=== PATIENT | male | born 1990 | race Caucasian/White ===

== ENCOUNTER 2021-05-06 17:31 | Emergency (ER) | payer BC, SELFPAY ==
--- NOTE | ~2021-05-06 | XR_ITS ---
EXAMINATION: XR ankle LT min 3V EXAM DATE: 05/06/2021 18:03 INDICATION: Jumping Off Truck Injury,Generalized Pain/Swelling initial encounter. TECHNIQUE: Left ankle frontal, lateral and oblique projections obtained and reviewed. There is no pr ior study for comparison. FINDINGS: The left ankle mortise appears intact. There are no acute fractures or dislocations ident ified. There is no subcutaneous gas. The soft tissue is unremarkable. There are no radiopaque for eign bodies. IMPRESSION: 1. XR ankle LT min 3V exam without acute osseous findings. Reviewed, dictated and finalized at location A. [employer]
[2021-05-06 17:44] VITALS: BP 136/80; PULSE 82; RESP 16; TEMP 37.6; O2SAT 100
--- NOTE | 2021-05-06 18:18 | PC.NURSE ---
PT DECLINED ICE AND WHEELCHAIR
--- NOTE | 2021-05-06 18:43 | ED.LOWEXIN ---
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 Patient presents with right ankle pain and swelling. MD complaint: ankle injury Injury: Right: ankle Related Data Home Medications Medication Instructions Recorded Confirmed No Home Medications 05/06/21 05/06/21 Allergies Allergy/AdvReac Type Severity Reaction Status Date / Time No Known Allergies Allergy Verified 05/06/21 17:57 Review of Systems Review of Systems: CONSTITUTIONAL: Denies fever, chills, or sweats. EYES: Denies visual changes, redness, or discharge. ENT: Denies rhinorrhea, congestion, sore throat, or otalgia. CARDIOVASCULAR: Denies chest pain, palpitations, or edema. RESPIRATORY: Denies cough or dyspnea. GASTROINTESTINAL: Denies abdominal pain, nausea, vomiting, or diarrhea. GENITOURINARY: Denies dysuria or hematuria. SKIN: Denies rash or itching. MUSCULOSKELETAL: Denies back pain, joint pain, or myalgia. NEUROLOGIC: Denies headache, numbness, or weakness. PSYCHIATRIC: Denies anxiety or depression. Exam Narrative: GENERAL: Well-appearing, well-nourished, and in no acute distress. HEAD: Normocephalic, atraumatic. EYES: PERRLA and EOMI. ENT: Nares clear, no rhinorrhea or epistaxis. Mucous membranes moist. NECK: Supple. CHEST: Clear to auscultation. No respiratory distress. HEART: Regular rate and rhythm. No murmur heard. Normal peripheral pulses. ABDOMEN: Soft, nontender, nondistended, normal active bowel sounds. EXTREMITIES: Normal range of motion. No edema. ANKLE EXAM SKIN INTACT. NORMAL DP PULSE, NORMAL CAP REFILL. NORMAL SENSATION. Swelling to lateral side of right ankle SKIN: Warm, dry, no rash. NEURO: No focal deficits. Alert and oriented x3. Shabbir Coma Scale Eye Opening: Spontaneous 4 Shabbir Coma Scale Motor: Obeys Commands 6 Buchanan Coma Scale Verbal: Oriented 5 Shabbir Coma Scale Total 15 Course Course Level of Care: Express Care Visit Vital Signs Vital signs: Vital Signs Temperature 37.6 C H 05/06/21 17:44 Pulse Rate 82 01/03/22 17:44 Respiratory Rate 16 05/06/21 17:44 Blood Pressure 136/80 05/06/21 17:44 Pulse Oximetry 100 05/06/21 17:44 Temperature 37.6 C H 05/06/21 17:44 Pulse Rate 82 05/06/21 17:44 Respiratory Rate 16 05/06/21 17:44 Blood Pressure 136/80 05/06/21 17:44 Pulse Oximetry 100 05/06/21 17:44 Addressed elevated BP today. Today's blood pressure higher than recommended range. Discussed importance of follow -up with PCP and possible detention effects/cardiovascular events related to HTN. Currently patient denies headache, dizziness, vision changes, CP or shortness of breath. DISCUSSED WITH PATIENT, X-RAY FINDINGS AND THAT X-RAYS WERE NEGATIVE FOR FRACTURE OR DISLOCATIONS. X-RAYS CANNOT RULE OUT TENDON, LIGAMENT, OR SOFT TISSUE STRUCTURE INJURIES AND IF SYMPTOMS PERSIST OR WORSEN, FURTHER EVALUATION MAY BE WARRANTED FOR POTENTIAL IMAGING. ADVISED REST, ICE, COMPRESSION, AND ELEVATION. IF PRESCRIBED ANY MEDICATIONS, TAKE DIRECTED. IF PRESCRIBED MUSCLE RELAXERS, DO NOT DRINK ALCOHOL, DRIVE, OR OPERATE ANY HEAVY MACHINERY WHILE TAKING. INSTRUCTED ON WHEN TO F/U WITH PCP AND CRITICAL RED FLAGS S/S DISCUSSED TO WHEN TO RETURN TO THE EXPRESS SOONER OR GO TO THE EMERGENCY DEPARTMENT. PATIENT/FAMILY UNDERSTAND IMPORTANCE OF CLOSE OBSERVATION AND RETURNING OR GOING TO THE EMERGENCY ROOM IF ANY WORSENING CONDITION. . MDM - Extremity Injury (Lower) Differential Diagnosis Differential diagnosis: Likely ankle sprain and strain, acute internal derangement of knee, fracture of femur, fracture of hip, puncture wound of foot, fracture of toe and ankle fracture Critical Care Time Critical Care Time Critical Care Time: No Discharge P
== END 2021-05-06 18:56 | disposition home or self-care (01) ==
PROVIDERS: Emergency Provider Nurse Practitioner Family
DX: S93.402A Sprain of unspecified ligament of left ankle, initial encounter (principal); S96.912A Strain of unspecified muscle and tendon at ankle and foot level, left foot, initial encounter; X58.XXXA Exposure to other specified factors, initial encounter
CPT/HCPCS: 73610; 99213; G0463

== ENCOUNTER 2023-02-16 09:38 | Emergency (ER) | payer BC, SELFPAY ==
--- NOTE | 2023-02-16 09:41 | ED.SOB ---
HPI - SOB/Dyspnea General Chief Complaint: Upper Respiratory Infection Stated Complaint: Shortness of Breath/Chest Congestion Time Seen by Provider: 02/16/23 09:41 Source: patient Mode of arrival: ambulatory Limitations: no limitations History of Present Illness HPI Narrative: Jayme is a 32-year-old male patient presenting to clinic today with complaints of shortness of breath and chest congestion x1 week. He reports last week he had URI symptoms and it has gone down into his chest. States he does have a history of asthma and any time he gets a cold he develops chest congestion and wheezing. Has been using his at-home nebulizers and albuterol inhaler without much relief. He denies any fever or chills. Does report bringing up some white phlegm. States he has been getting in a coughing fits and this is causing him to vomit. No known exposure to anyone with COVID, flu, or strep. Denies any chest pain. Related Data Home Medications Medication Instructions Recorded Confirmed albuterol sulfate 2.5 mg/3 mL mg 02/16/23 (0.083 %) solution for nebulization albuterol sulfate 90 mcg/actuation inhalation 02/16/23 aerosol inhaler cetirizine 10 mg tablet mg 02/16/23 Allergies Allergy/AdvReac Type Severity Reaction Status Date / Time No Known Allergies Allergy Verified 05/06/21 17:57 Review of Systems Review of Systems: Pertinent positives per HPI. Patient denies any fever, chills, rash, headache, visual changes, dizziness, chest pain, palpitations, diarrhea, constipation, abdominal pain, or any urinary issues. PMFSH Comments At the time of my signature, I reviewed and agree with the nursing past medical, surgical, social, and family history. There is no relevant family history pertinent to the patient complaint. Exam Narrative: General: Well-developed, obese, in no apparent distress Head: Normocephalic, atraumatic Eyes: Pupils equally round and reactive to light bilaterally, EOM intact, sclera and conjunctive clear, no discharge, lids normal Ears: TMs intact and congested, ear canals clear, no drainage, grossly hearing normal. Nose: Nares patent, clear nasal discharge, mild inflammation, no sinus tenderness. Mouth: Oropharynx without lesions or masses, good dentition, MMM. Neck: Supple, trachea midline, no enlargement of anterior or posterior cervical nodes, no thyroid masses or goiter palpable. Cardio: Regular rate and rhythm, s1 and s2 normal, no murmur appreciated. Resp: Expiratory wheezing throughout lung kraft, no rhonchi, rales, wheezing or rubs Course Course Emergency Course: Portions of this record may have been created with voice recognition software. Level of Care: Express Care Visit Vital Signs Vital signs: Vital signs reviewed MDM - SOB/Dyspnea MDM Narrative Medical decision making narrative: At the time of visit patient is resting comfortably on the exam table. I suspect patient has bronchitis. Prescription for Tessalon Perles, prednisone, and azithromycin. Supportive measures were discussed with the patient he voiced understanding discharge instructions. Return/follow up precautions were reviewed and he voiced understanding. Differential Diagnosis Differential diagnosis: Likely acute exacerbation of chronic obstructive airways disease, congestive heart failure, community acquired pneumonia, asthma with exacerbation, pulmonary embolism and other (COVID) Discharge Plan Discharge Clinical Impression: Bronchitis Patient Disposition: Home, Self-Care Condition: Stable Instructions: Antibiotic Form, Acute Bronchitis (ED) Additional Instructions: Take prescription medications only as prescribed-prednisone, Tessalon Perles, and azithromycin Increase fluids and stay well hydrated Tylenol/motrin for pain/fever Flonase and OTC antihistamines as directed Vicks vapor rub to open sinuses Sinus rinses for congestion Cepacol spray, cough drops, throat lozenges,
[2023-02-16 09:44] VITALS: BP 124/87; PULSE 84; RESP 20; TEMP 36.5; O2SAT 98
== END 2023-02-16 10:05 | disposition home or self-care (01) ==
PROVIDERS: Emergency Provider Nurse Practitioner Family
DX: J40 Bronchitis, not specified as acute or chronic (principal); J45.909 Unspecified asthma, uncomplicated
CPT/HCPCS: 99213; G0463

== ENCOUNTER 2024-02-29 17:37 | Emergency (ER) | payer OTHER, SELFPAY ==
[2024-02-29 18:06] VITALS: BP 113/74; PULSE 80; RESP 18; TEMP 36.7; O2SAT 98
[2024-02-29 18:16] VITALS: BP 113/74; PULSE 80; RESP 18; TEMP 36.7; O2SAT 98
--- NOTE | 2024-02-29 19:13 | ED_ITS ---
HPI - URI/Sore Throat General Chief Complaint: Upper Respiratory Infection Stated Complaint: Chest Congestion/Cough/Congestion Time Seen by Provider: 02/29/24 19:00 Source: patient, RN notes reviewed and old records reviewed Mode of arrival: ambulatory Limitations: no limitations History of Present Illness HPI Narrative: 33 year old male presents to [facility] care with complaints of head cold initially for the past 3-4 days which has gone to his chest with coughing,wheezing and expectoration of mucous. Patient reports that he has history of asthma and has been using his inhaler and has taken some DayQuil for his symptoms.Patient reports no known fevers admits to dyspnea with exertion. MD elicited complaint: cough, rhinorrhea, nasal congestion and other (BOBO and wheezing) Pertinent past history: asthma Onset (ago): day(s) (3) Consistency: progressively worsening Severity: moderate Able to tolerate fluids by mouth: Yes Treatments prior to arrival: other (DayQuil and inhaler) Related Data Home Medications Medication Instructions Recorded Confirmed albuterol sulfate 2.5 mg/3 mL mg 02/16/23 (0.083 %) solution for nebulization albuterol sulfate 90 mcg/actuation inhalation 02/16/23 aerosol inhaler Allergies Allergy/AdvReac Type Severity Reaction Status Date / Time No Known Allergies Allergy Verified 05/06/21 17:57 Review of Systems Review of Systems: CONSTITUTIONAL: Denies malaise, chills, sweats, or fever. EYES: Denies visual changes, redness, or discharge. ENT: Reports rhinorrhea, congestion, sinus pressure, no otalgia and no sore throat. CARDIOVASCULAR: Denies chest pain, palpitations, or edema. RESPIRATORY: Reports cough.?REports dyspnea and wheezing GASTROINTESTINAL: Denies abdominal pain, nausea, vomiting, diarrhea SKIN: Denies rash or itching. MUSCULOSKELETAL: Denies myalgia. NEUROLOGIC: Denies headache. All systems reviewed & are unremarkable except as noted in HPI and below PMFSH Past Medical History Medical History Asthma Social History Social History Smokeless tobacco user: chewing tobacco Alcohol intake: current Alcohol use details: social Substance use type: does not use Living arrangements: with family Gender identity (if verbalized by the patient): Male Comments At time of signature, agree with nursing past medical, surgical, social and family history. There is no relevant family history pertinent to the presenting complaint Exam Narrative: GENERAL: Well-appearing, well-nourished, and in no acute distress. HEAD: Normocephalic EYES: PERRLA, conjunctivae clear ENT: Nares clear, turbinates edematous and erythematous, clear discharge. Mucous membranes moist. TM pearly winter with dull light reflex bilaterally; no tragal tenderness. Oropharynx erythematous without lesions. Tonsils not enlarged and without exudate, no drooling, no hoarseness, no trismus, uvula midline.post nasal drainage and congestion NECK: Supple. No lymphadenopathy CHEST: Scattered wheezing through out lung kraft on auscultation, breath sounds equal.Positive for wheezing, no rhonchi, rales, or stridor. No respiratory distress, speaks in full sentences.cough noted SAO2 98% on room air HEART: Regular rate and rhythm. No murmur heard. SKIN: Warm, dry, no rash. NEURO: Alert and oriented x3. PSYCH: Normal mood and affect Course Course Emergency Course: Patient is aware of diagnosis, understands and agrees to treatment plan.? Anticipatory guidance given.? Patient agrees to follow-up as directed and is aware of reasons to seek care at the emergency department. Portions of this record may have been created with voice recognition software Level of Care: Express Care Visit Vital Signs Vital signs: Vital Signs Temperature 36.7 C 02/29/24 18:06 Pulse Rate 80 02/29/24 18:06 Respiratory Rate 18 02/29/24 18:06 Blood Pressure 113/74 02/29/24 18:06 Pulse Oximetry 98 02/29/24 18:06 Oxygen Delivery Room Air 02/29/24 18:06 Temperature 36.7 C 02/29/24 18:16 Pulse Rate 80 02/29/24 18:16 Respiratory Rate 18 02/29/24 18:16 Blood Pressure 113/74 02/29/24 18:16 Pulse Oximetry 98 02/29/24 18:16 Oxygen Delivery Room Air 02/29/24 18:16 Reviewed MDM - URI/Sore Throat MDM Narrative Medical decision making narrative: Differential diagnosis considered: Teresa virus, strep pharyngitis, allergic rhinitis, upper respiratory tract infection, sinusitis, rhinosinusitis, nasopharyngitis. viral pharyngitis, otitis media, otitis externa, pneumonia, bronchitis, viral cough syndrome, viral syndrome, and influenza.? Exam findings show no acute concerns or changes; patient is non-toxic appearing and is in no distress.? Patient is appropriate for outpatient treatment and follow-up. Differential Diagnosis Differential diagnosis: Likely upper respiratory infection, viral infection, bronchitis and other (acute cough, asthma exacerbation) Medical Records Attestation: I reviewed the patient's medical records. Lab Data Attestation: I reviewed the patient's lab results. Critical Care Time Critical Care Time Critical Care Time: No Discharge Plan Discharge Clinical Impression: Acute bronchitis Patient Disposition: Home, Self-Care Condition: Stable Instructions: Antibiotic Form, Acute Bronchitis (ED) Additional Instructions: Increase fluids especially juices and water [id number] cough and cold medicine of your choice for your symptoms Tylenol or ibuprofen for any fever pain Cough tablets as directed for cough--do not bite, chew or suck on--swallow whole Continue your inhaler/nebulizer as directed Steroids as directed--take with food heat to the face 20-30 minutes 4-6 times a day for pain Salt water gargles, throat lozenges or throat sprays as desired Antibiotic as directed--finished the medication If your symptoms persist, change or worsen significantly before you can contact your personal physician then please, without delay, go to the emergency department for further evaluation. Follow-up with PCP in 7-10 days or sooner if needed Prescriptions: New albuterol sulfate 90 mcg/actuation HFA aerosol inhaler 2 puff inhalation QID PRN (Reason: shortness of breath or wheezing) Qty: 8.5 0RF azithromycin 500 mg tablet 500 mg PO DAILY 5 Days Qty: 5 0RF prednisone 20 mg tablet 20 mg PO DAILY 5 Days Qty: 5 0RF No Action albuterol sulfate 2.5 mg /3 mL (0.083 %) solution for nebulization albuterol sulfate 90 mcg/actuation HFA aerosol inhaler INHALATION Follow-up/Referrals: UNKNOWN,DOCTOR [Primary Care Provider] - Time of Disposition: 19:15 Quality Shabbir Coma Scale Eyes: Open Verbal: Oriented and Alert Motor: Follows Commands Shabbir Coma Total Score: 15
== END 2024-02-29 19:24 | disposition home or self-care (01) ==
PROVIDERS: Emergency Provider Registered Nurse
DX: J20.9 Acute bronchitis, unspecified (principal); F17.220 Nicotine dependence, chewing tobacco, uncomplicated; J45.909 Unspecified asthma, uncomplicated
CPT/HCPCS: 99213; G0463

== ENCOUNTER 2024-08-28 19:09 | Emergency (ER) | payer OTHER, SELFPAY ==
--- OUTSIDE RECORDS SUMMARY | 2024-08-28 19:11 | XMS_ITS | Clinical Summary ---
Author Organization [facility] Address [address] [place] [address] Care Team Providers Care [employer] Name Role Phone Bro Alicea MD Primary Care Provider [phone] Allergies No known active allergies Medications azelastine (ASTELIN) 137 mcg (0.1 %) nasal spray Administer 1 spray into each nostril 2 (two) times a day Use in each nostril as directed 30 mL 3 Active cetirizine (ZyrTEC) 10 mg tablet Take 1 tablet (10 mg total) by mouth daily as needed for allergies 90 tablet 3 Active albuterol HFA (PROVENTIL HFA,VENTOLIN HFA,PROAIR HFA) 90 mcg/actuation inhaler Inhale 2 puffs every 4 (four) hours as needed for wheezing or shortness of breath 2 each 3 4 Active budesonide-form oteroL (SYMBICORT) 160-4.5 mcg/actuation inhaler Inhale 2 puffs 2 (two) times a day 3 each 3 4 Active Active Problems Problem Noted Date Diagnosed Date Annual physical exam 12/15/2022 Assessment & Plan (06/09/2023 9:34 AM BAG WASHER): Discussed lifestyle modifications, diet and exercise. Routine blood work ordered/reviewed today. Yearly vision and dental examinations. Assessment & Plan (12/15/2022 8:36 AM CDT): Discussed lifestyle modifications, diet and exercise. Routine blood work ordered/reviewed today. Yearly vision and dental examinations. Class 1 obesity due to exces s calories without serious comorbidity with body mass index (BMI) of 34.0 to 34.9 in adult 12/15/2022 Assessment & Plan (06/09/2023 9:34 AM BAG WASHER): Wt Readings from Last 3 Encounters: 06/09/23 107 kg (236 lb) 12/15/22 105.6 kg (232 lb 12.8 oz) BMI Readings from Last 3 Encounters: 06/09/23 35.36 kg/m 12/15/22 34.88 kg/m Not at goal of bmi <30 Continue diet and exercise BMI Follow-up includes: nutrition counseling and exercise counseling. Assessment & Plan (12/15/2022 8:39 AM CDT): Wt Readings from Last 3 Encounters: 12/15/22 105.6 kg (232 lb 12.8 oz) BMI Readings from Last 3 Encounters: 12/15/22 34.88 kg/m Not at goal of bmi <30 Continue diet and exercise BMI Follow-up includes: nutrition counseling and exercise counseling. Low HDL (under 40) 12/15/2022 Assessment & Plan (06/09/2023 9:34 AM BAG WASHER): No results found for: CHOL , POCCHOL No results found for: HDL , POCHDL No results found for: LDLCALC , CLDL , HIRISKLDL , LDL , LDLC , LDLDIRECT , LDLMED , LDLP , POCLDL , SCRLDL , SMALLLDLP , TOTLDLC No results found for: TRIG , POCTRIG No results found for: POCCHDLR No results found for: POCNONHDL No results found for: POCCHLPL Recheck lipid panel now Moderate persistent asthma with acute exacerbati on 03/01/2018 Assessment & Plan (06/09/2023 9:31 AM BAG WASHER): Not at goala t this time Having trouble breathing since recent URI Significant wheezing on exam right now Not at goal at this time Is able to do his stuff Has significant cough at night, trouble breathing at rest Start prednisone and azithromycin now Referral to pulm Immunizations Immunization Administration Dates Next Due DTP 07/28/1995 DTaP 07/25/1995, 3,11/16/1991,06/07/1991,1 Hep B, Adolescent or Pediatric 08/04/2001,2000,12/17/2000 HiB 01/18/1992,11/16/1991,06/07/1991 ,02/19/1991 Influenza, Unspecified 06/09/2023(Deferred: Sandra ent Refused) MMR 09/05/1993,01/18/1992 OPV 07/28/1995, 3,11/16/1991,06/07/1991,1 Td, adsorbed 12/07/2004 Family History Medical History Relation Name Comments Pneumonia Father at 45 Breast cancer Maternal Grandmother Cancer Other Family history of Cancer; Relation Name Status Comments Father Maternal Grandmother Mother Alive Other Social History Tobacco Use Types Packs/Day Years Used Date Smoking Tobacco: Former Cigarettes Smokeless Tobacco: Current Chew Tobacco Cessation:Ready to Q uit: Not Asked; Counseling Given: Not Answered Alcohol Use Standard Drinks/Week Comments No 0 (1 standard drink = 0.6 oz pur e alcohol) PHQ-2 Answer Date Recorded PHQ-2 Total Score (If total score is 3 or more points, staff should administer the PHQ-9) 0 06/09/2023 Sex and Gender Information Value Date Recorded Sex Assigned at Not on file Legal Sex Male 12:12 AM BAG WASHER Gender Identity Not on file Sexual Orientation Not on file Obstetrics History Last Filed Vital Signs Vital Sign Reading Time Taken Comments Blood Pressure 110/78 06/09/2023 9:10 AM BAG WASHER Pulse 91 06/09/2023 9:10 AM BAG WASHER Temperature - - Respiratory Rate 16 06/09/2023 9:10 AM BAG WASHER Oxygen Saturation 96% 06/09/2023 9:10 AM BAG WASHER Inhaled Oxygen Concentration - - Weight 107 kg (236 lb) 06/09/2023 9:10 AM BAG WASHER Height 174 cm (5' 8.5 ) 06/09/2023 9:10 AM BAG WASHER Body Mass Index 35.36 06/09/2023 9:10 AM BAG WASHER Plan of Treatment Health Maintenance Due Date Last Done Comments Hepatitis C Screening 1990 Varicella Vaccines (1 of 2 - 13+ 2-dose series) 09/25/2003 DTaP/Tdap/Td Vaccine (6 - Tdap) 12/08/2004 12/07/2004, 07/28/1995, 07/25/1995, Additional history exists Pneumococcal vaccine <65 (1 of 2 - PCV) 2009 Influenza Vaccine (#1) 2024 Depression Screening 06/09/2024 06/09/2023, 12/16/19 Regular Well Visit/Exam 18-64 06/09/2024 06/09/2023 Hepatitis B Screening Completed 08/04/2001 , 01/30/2001, 12/17/2000 HPV Vaccines Aged Out No longer eligi ble based on patient's age to complete this topic Insurance [employer] Care Teams [employer] Relationship Specialty Start Date End Date Bro Alicea MD [address] [facility] [place] [id number] PCP - General Family Medicine 12/15/22
--- OUTSIDE RECORDS SUMMARY | 2024-08-28 19:11 | XMS_ITS | Encounter Summary ---
Author Organization [facility] Address [address] [place] [address] Phone Care Team Providers Care Cake Wrapper Name Role Phone Dioni Gibbs MD Primary Care Provider [phone] Reason for Visit * Reason Onset Date Comments Letter for School/Work 08/03/2020 wanting t o know why he needed to contact office Encounter Details Date Type Department Care Team (Late st Contact Info) Description 08/03/2020 Telephone [facility] [address] [place] [address] Dioni Gibbs MD [address] [place] [address] Letter for School/Work (wanting to know why he needed to contact office) Social History Tobacco Use Types Packs/Day Years Used Date Smoking Tobacco: Former Cigarettes 1.5 3 1 - 02/18/2009 Smokeless Tobacco: Current Chew Alcohol Use Standard Drinks/Week Comments No 0 (1 standard drink = 0.6 oz pur e alcohol) Sexually Active Control Partners Comments Yes Pill Female Sex and Gender Information Value Date Recorded Sex Assigned at Not on file Legal Sex Male 7:05 PM CDT Gender Identity Not on file Sexual Orientation Not on file 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 Explained that patient is on prescription medication. Office is trying to reach him to make check up appointment. -Vannesa voiced that he is feeling fine, and he only goes when he is not. -explained with prescription medications, patients are seen at least once a year to check up on howthey are doing on prescriptions. Vannesa said that she would check with patient's schedule and call back to make appointment. documented in this encounter Plan of Treatment Not on file documented as of this encounter Visit Diagnoses Not on filedocumented in this encounter Additional Health Concerns Assessment Noted Time PHQ-9 Depression Total Score: 0 11/12/19 18 11:10 AM CDT documented as of this encounter Care Teams Cake Wrapper Relationship Specialty Start Date End Date Dioni Gibbs MD [address] [place] [address] PCP - General Internal Medicine 02/18/18 documented as of this encounter
--- OUTSIDE RECORDS SUMMARY | 2024-08-28 19:11 | XMS_ITS | Clinical Summary ---
Author Organization [facility] Address [address] [place] [address] Phone Care Team Providers Care Eligibility Analyst Name Role Phone Dioni Gibbs MD Primary Care Provider [phone] Allergies No known active allergies Medications albuterol 108 (90 Base) MCG/ACT Aerosol Solution take 1-2 Puffs by inhalation every 4 hours as needed for Wheezing or Cough. 18 g 1 3 Active Additional Information Patient not taking.Reported on 12/10/2022 budesonide-formo terol fumarate (SYMBICORT) 160-4.5 MCG/ACT AerosolIndicatio ns:Moderate persistent asthma without complication take 2 Puffs by inhalation 2 times daily. 30.6 g 4 Active Active Problems Problem Noted Date Diagnosed Date Moderate persistent asthma without complication 03/01/2018 Resolved Problems Problem Noted Date Diagnosed Date Resolved Date Exacerbation of asthma 09/06/201802/09 Immunizations Immunization Administration Dates Next Due DTAP VACCINE 07/25/1995, 3,11/16/1991,1991,02/19/1991 DTP Vaccine 07/28/1995 Hepatitis B Vaccine, Pediatric/adolescent 08/04/2001,01/30/2001,12/17/2000 Hib Vaccine,unspecified Formulation 01/02,11/16/1991,06/07/1991,1990 MMR Vaccine 09/05/1993,01/18/1992 OPV 07/28/1995, 3,11/16/1991,1991,02/19/1991 TD VACCINE 12/07/2004 Family History Medical History Relation Name Comments No Known Problems Brother 1 No Known Problems Brother 2 No Known Problems Father Pneumonia Cancer Maternal Grandmother Breast No Known Problems Mother No Known Problems Sister Relation Name Status Comments Brother 1 Alive Brother 2 Alive Father Maternal Grandmother Mother Alive Sister Alive Social History Tobacco Use Types Packs/Day Years Used Date Smoking Tobacco: Former Cigarettes 1.5 3 1 - 02/18/2009 Smokeless Tobacco: Current Chew Tobacco Cessation:Ready to [...] 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 Not on file Not on file Last Filed Vital Signs Vital Sign Reading Time Taken Comments Blood Pressure 120/80 10/29/2022 10:11 AM CDT Pulse 74 10/29/2022 10:11 AM CDT Temperature 36.4 C (97.6 F) 10/29/2022 10:11 AM CDT Respiratory Rate 20 10/29/2022 10:11 AM CDT Oxygen Saturation 97% 10/29/2022 10:11 AM CDT Inhaled Oxygen Concentration - - Weight 103.9 kg (229 lb) 10/29/2022 10:11 AM CDT Height 175.3 cm (5' 9 ) 10/29/2022 10:11 AM CDT Body Mass Index 33.82 10/29/2022 10:11 AM CDT Plan of Treatment Health Maintenance Due Date Last Done Comments Hepatitis C Virus (HCV) Screening 1990 DTaP/Tdap/Td Immunization (6 - Tdap) 12/08/2004 12/07/2004, 07/28/1995, 07/25/1995, Additional history exists Pneumococcal Immunization Combined (1 of 2 - PCV) 2009 Influenza Immunization (#1) 2024 SARS-COV-2 Immunization ( - season) 2024 Respiratory Syncytial Virus (RSV) Immunization (Adult) (1 - 1-dose 75+ series) 2065 Hepatitis B Immunization Completed 002, 01/30/2001, 12/17/2000 Meningococcal Immunization (ACWY) Aged Out No longer eligible based on patient's age to complete this topic Rotavirus Immunization Aged Out No lo nger eligible based on patient's age to complete this topic Insurance [facility] Care Teams Eligibility Analyst Relationship Specialty Start Date End Date Dioni Gibbs MD [address] [place] [address] PCP - General Internal Medicine 02/18/18
--- OUTSIDE RECORDS SUMMARY | 2024-08-28 19:11 | XMS_ITS | Referral Summary ---
Author Organization [facility] Medical Office Building A Address [address] [place] [address] Care Team Providers Care Change Management Expert Name Role Phone Bro Alicea MD Primary Care Provider [phone] Allergies No known active allergies Medications azelastine [...] 12/15/2022 Assessment & Plan (06/09/2023 9:34 AM MEDIA SALES REPRESENTATIVE): Discussed lifestyle modifications, diet and exercise. Routine [...] 12/15/2022 Assessment & Plan (06/09/2023 9:34 AM MEDIA SALES REPRESENTATIVE): Wt Readings from Last 3 Encounters: 06/09/23 [...] 12/15/2022 Assessment & Plan (06/09/2023 9:34 AM MEDIA SALES REPRESENTATIVE): No results found for: CHOL , POCCHOL [...] 03/01/2018 Assessment & Plan (06/09/2023 9:31 AM MEDIA SALES REPRESENTATIVE): Not at goala t this time Having [...] 09/05/1993,01/18/1992 OPV 07/28/1995, 3,11/16/1991,06/07/1991,1 Td, adsorbed 12/07/2004 Social History Tobacco Use Types Packs/Day Years [...] on file Legal Sex Male 12:12 AM MEDIA SALES REPRESENTATIVE Gender Identity Not on file Sexual Orientation Not on file Last Filed Vital Signs Vital Sign Reading Time Taken Comments Blood Pressure 110/78 06/09/2023 9:10 AM MEDIA SALES REPRESENTATIVE Pulse 91 06/09/2023 9:10 AM MEDIA SALES REPRESENTATIVE Temperature - - Respiratory Rate 16 06/09/2023 9:10 AM MEDIA SALES REPRESENTATIVE Oxygen Saturation 96% 06/09/2023 9:10 AM MEDIA SALES REPRESENTATIVE Inhaled Oxygen Concentration - - Weight 107 kg (236 lb) 06/09/2023 9:10 AM MEDIA SALES REPRESENTATIVE Height 174 cm (5' 8.5 ) 06/09/2023 9:10 AM MEDIA SALES REPRESENTATIVE Body Mass Index 35.36 06/09/2023 9:10 AM MEDIA SALES REPRESENTATIVE Plan of Treatment Not on file Insurance [employer] Care Teams Change Management Expert Relationship Specialty Start Date End Date Bro Alicea MD [address] [address] PCP - General Family Medicine 12/15/22
--- OUTSIDE RECORDS SUMMARY | 2024-08-28 19:11 | XMS_ITS | Continuity of Care Document ---
Author Organization [facility] Address [address] [place] [address] Phone Care Team Providers Care Printed Circuit Boards Inspector Name Role Phone Gopi Moya MD Unavailable Unavailable Procedures Procedure Date Eye Exam, New Patient Advance Directives Directive Yes / No Effective Date File Name No Information Encounters Encounter Description Practice Location Reason(s) For Visit Diagnoses Date Provider Providers Copied on Encounter [facility], [address], [place], [place], [id number], [place] tel:[phone] [place] Professional No Information [address] [facility] [address] [place], [place], [id number], [place]. tel:[phone] Family History Family Member Type Diagnosis Age At Onset No Information Payers Payer name Insurance type Covered democrat ID Authoraruna tiaimee(s) Medicaid [facility] [id number] Social History Type Description Quantity Date Captured [...]
--- OUTSIDE RECORDS SUMMARY | 2024-08-28 19:13 | XMS_ITS | Continuity of Care Document ---
Author Organization [facility] Address [address] [place] [address] Phone Care Team Providers Care Tub Tender Name Role Phone Gopi Moya MD Unavailable Unavailable Procedures Procedure Date Eye Exam, New Patient Advance Directives Directive Yes / No Effective Date File Name No Information Encounters Encounter Description Practice Location Reason(s) For Visit Diagnoses Date Provider Providers Copied on Encounter [facility], [address], [place], [place], [id number], [place] tel:[phone] [place] Professional No Information [address] [facility] [address] [place], [place], [id number], [place]. tel:[phone] Family History Family Member Type Diagnosis Age At Onset No Information Payers Payer name Insurance type Covered constitution party ID Authoraruna tiaimee(s) Medicaid [facility] [id number] Social History Type Description Quantity Date Captured [...]
[2024-08-28 19:17] VITALS: BP 132/86; PULSE 87; RESP 18; TEMP 36.4; O2SAT 99
--- NOTE | 2024-08-28 19:46 | ED.GENADULT ---
HPI - General Adult General Chief complaint: Upper Respiratory Infection Stated complaint: Cough/Shortness of Breath Source: patient Mode of arrival: ambulatory History of Present Illness HPI narrative: Patient presents for evaluation of sick symptoms. His primary concerns are wheezing, cough, shortness of breath. He denies any fever chills, nausea, vomiting. He has experienced some muscle cramping in his abdomen during coughing episodes. In the past he has had pneumonia and bronchitis. No recent sick contacts to his knowledge. He does not smoke. He is nebulizer solution at home. He ran out of his albuterol inhaler. He states he was told in the past that he is asthmatic. Related Data Home Medications ?Medication ?Instructions ?Recorded ?Confirmed ?Last Taken ?Type albuterol sulfate 2.5 mg/3 mL mg 02/16/23 Unknown History (0.083 %) solution for nebulization albuterol sulfate 90 mcg/actuation inhalation 02/16/23 Unknown History aerosol inhaler Allergies Allergy/AdvReac Type Severity Reaction Status Date / Time No Known Allergies Allergy Verified 08/28/24 19:21 Review of Systems Review of Systems: CONSTITUTIONAL: Denies fever, chills, or sweats. EYES: Denies visual changes, redness, or discharge. ENT: Denies rhinorrhea, congestion, sore throat, or otalgia. CARDIOVASCULAR: Denies chest pain, palpitations, or edema. RESPIRATORY: Reports cough, shortness of breath, wheezing. GASTROINTESTINAL: Denies abdominal pain, nausea, vomiting, or diarrhea. GENITOURINARY: Denies dysuria or hematuria. SKIN: Denies rash or itching. MUSCULOSKELETAL: Reports muscle cramping during coughing episodes. NEUROLOGIC: Denies headache, numbness, dizziness, or weakness. PSYCHIATRIC: Denies anxiety or depression. [facility] Past Medical History Medical History Asthma Surgical History Surgical History No pertinent past surgical history Family History Family History Mother Family history non-contributory Social History Social History (Reviewed 08/28/24 @ 19:49 by TANYA Jones, [place] Smokeless tobacco user: chewing tobacco Alcohol intake: current Alcohol use details: social Substance use type: does not use Living arrangements: with family Gender identity (if verbalized by the patient): Male Sexual Orientation (if Verbalized by the Patient): Straight or Heterosexual Spiritual care concerns: No Exam Narrative: GENERAL: Well-appearing, well-nourished, and in no acute distress. HEAD: Normocephalic, atraumatic. EYES: PERRLA and EOMI. ENT: Nares clear, no rhinorrhea or epistaxis. Mucous membranes moist. Oropharynx without tonsillar hypertrophy exudate or other lesions. Bilateral TMs pearly winter nonbulging NECK: Supple. No adenopathy or masses. No carotid bruits or JVD CHEST: Diffuse inspiratory and expiratory wheezing. Cough present on exam. HEART: Regular rate and rhythm. No murmur heard. Normal peripheral pulses. ABDOMEN: Soft, nontender, nondistended, normal active bowel sounds. EXTREMITIES: Normal range of motion. No edema. SKIN: Warm, dry, no rash. NEURO: No focal deficits. Alert and oriented x3. PSYCH: Normal mood and affect. Course Course Emergency Course: This is a 33-year-old male who presented for evaluation of respiratory symptoms. He has a history of asthma, pneumonia and bronchitis. He requested to forego imaging to decrease his cost associated with this visit. He asked to be treated empirically for pneumonia. Will discharge with azithromycin, Augmentin, prednisone, albuterol. Follow-up with primary provider. Go to the ER for worsening symptoms. Patient in agreement with plan of care. Level of Care: Express Care Visit Vital Signs Vital signs: Vital Signs Temperature 36.4 C L 08/28/24 19:17 Pulse Rate 87 08/28/24 19:17 Respiratory Rate 18 08/28/24 19:17 Blood Pressure 132/86 08/28/24 19:17 Pulse Oximetry 99 08/28/24 19:17 Oxygen Delivery Room Air 08/28/24 19:17 Temperature 36.4 C L 08/28/24 19:17 Pulse Rate 87 08/28/24 19:17 Respiratory Rate 18 08/28/24 19:17 Blood Pressure 132/86 08/28/24 19:17 Pulse Oximetry 99 08/28/24 19:17 Oxygen Delivery Room Air 08/28/24 19:17 Medical Decision Making Vital Signs Vital Signs: Vital Signs Temperature 36.4 C L 08/28/24 19:17 Pulse Rate 87 08/28/24 19:17 Respiratory Rate 18 08/28/24 19:17 Blood Pressure 132/86 08/28/24 19:17 Pulse Oximetry 99 08/28/24 19:17 Oxygen Delivery Room Air 08/28/24 19:17 Temperature 36.4 C L 08/28/24 19:17 Pulse Rate 87 08/28/24 19:17 Respiratory Rate 18 08/28/24 19:17 Blood Pressure 132/86 08/28/24 19:17 Pulse Oximetry 99 08/28/24 19:17 Oxygen Delivery Room Air 08/28/24 19:17 Discharge Plan Discharge Clinical Impression: At risk for pneumonia Patient Disposition: Home Condition: Stable Instructions: Antibiotic Form, Community Acquired Pneumonia (DC) Patient Language: Khmer Prescriptions: New azithromycin 250 mg tablet See Rx Instructions .ROUTE .COMPLEX Qty: 6 0RF Rx Instructions: For 250 mg dose pack: take 500 mg today (day 1), then 250 mg for 4 days (days 2-5) amoxicillin-pot clavulanate 875-125 mg tablet 1 tablet PO Q12H Qty: 20 0RF prednisone 50 mg tablet 50 mg PO DAILY Qty: 5 0RF albuterol sulfate [Ventolin HFA] 90 mcg/actuation HFA aerosol inhaler 2 puff inhalation QID Qty: 8.5 0RF No Action albuterol sulfate 90 mcg/actuation HFA aerosol inhaler 2 puff inhalation QID PRN (Reason: shortness of breath or wheezing) Qty: 8.5 0RF azithromycin 500 mg tablet 500 mg PO DAILY 5 Days Qty: 5 0RF prednisone 20 mg tablet 20 mg PO DAILY 5 Days Qty: 5 0RF albuterol sulfate 2.5 mg /3 mL (0.083 %) solution for nebulization albuterol sulfate 90 mcg/actuation HFA aerosol inhaler INHALATION Follow-up/Referrals: Killian Tovar MD [Physician] - Time of Disposition: 19:45
== END 2024-08-28 19:49 | disposition home or self-care (01) ==
PROVIDERS: Emergency Provider Nurse Practitioner
DX: R05.9 Cough, unspecified (principal); R06.02 Shortness of breath; F17.220 Nicotine dependence, chewing tobacco, uncomplicated; J45.909 Unspecified asthma, uncomplicated
CPT/HCPCS: 99213; G0463

== ENCOUNTER 2024-11-08 11:53 | Emergency (ER) | payer OTHER, SELFPAY ==
--- OUTSIDE RECORDS SUMMARY | 2024-11-08 11:55 | XMS_ITS | Referral Summary ---
Author Organization [facility] Medical Office Building A Address [address] [place] [address] Care Team Providers Care Family Development Extension Specialist Name Role Phone Bro Alicea MD Primary Care Provider [phone] Allergies No known active allergies Medications azelastine [...] 12/15/2022 Assessment & Plan (06/09/2023 9:34 AM AIR CREW MEMBER): Discussed lifestyle modifications, diet and exercise. Routine [...] 12/15/2022 Assessment & Plan (06/09/2023 9:34 AM AIR CREW MEMBER): Wt Readings from Last 3 Encounters: 06/09/23 [...] 12/15/2022 Assessment & Plan (06/09/2023 9:34 AM AIR CREW MEMBER): No results found for: CHOL, POCCHOL No results found for: HDL, POCHDL No results found for: LDLCALC, CLDL, HIRISKLDL, LDL, LDLC, LDLDIRECT, LDLMED, LDLP, POCLDL, SCRLDL, SMALLLDLP, TOTLDLC No results found for: TRIG, POCTRIG No results found for: POCCHDLR No results found for: POCNONHDL No results found for: POCCHLPL Recheck lipid panel now Moderate persistent asthma with acute exacerbati on 03/01/2018 Assessment & Plan (06/09/2023 9:31 AM AIR CREW MEMBER): Not at goala t this time Having [...] on file Legal Sex Male 12:12 AM AIR CREW MEMBER Gender Identity Not on file Sexual Orientation Not on file Last Filed Vital Signs Vital Sign Reading Time Taken Comments Blood Pressure 110/78 06/09/2023 9:10 AM AIR CREW MEMBER Pulse 91 06/09/2023 9:10 AM AIR CREW MEMBER Temperature - - Respiratory Rate 16 06/09/2023 9:10 AM AIR CREW MEMBER Oxygen Saturation 96% 06/09/2023 9:10 AM AIR CREW MEMBER Inhaled Oxygen Concentration - - Weight 107 kg (236 lb) 06/09/2023 9:10 AM AIR CREW MEMBER Height 174 cm (5' 8.5) 06/09/2023 9:10 AM AIR CREW MEMBER Body Mass Index 35.36 06/09/2023 9:10 AM AIR CREW MEMBER Plan of Treatment Not on file Insurance [employer] Care Teams Family Development Extension Specialist Relationship Specialty Start Date End Date Bro Alicea MD [address] [facility] [place] [address] PCP - General Family Medicine 12/15/22
--- OUTSIDE RECORDS SUMMARY | 2024-11-08 11:55 | XMS_ITS | Continuity of Care Document ---
Author Organization [facility] Address [address] [place] [address] Phone Care Team Providers Care Student Officer Name Role Phone Gopi Moya MD Unavailable Unavailable Procedures Procedure Date Eye Exam, New Patient Advance Directives Directive Yes / No Effective Date File Name No Information Encounters Encounter Description Practice Location Reason(s) For Visit Diagnoses Date Provider Providers Copied on Encounter [facility], [address], [place], [place], [id number], [place] tel:[phone] [address] [place] Professional No Information [address] [facility] [address] [place], [place], [address], [place]. tel:[phone] Family History Family Member Type Diagnosis Age At Onset No Information Payers Payer name Insurance type Covered green party ID Authoraruna tiaimee(s) Medicaid [facility] [id number] Social History Type Description Quantity Date Captured [...]
--- OUTSIDE RECORDS SUMMARY | 2024-11-08 11:55 | XMS_ITS | Encounter Summary ---
Author Organization [facility] Address [address] 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
--- OUTSIDE RECORDS SUMMARY | 2024-11-08 11:55 | XMS_ITS | Clinical Summary ---
Author Organization [facility] Medical Office Building A Address [address] [place] [address] Care Team Providers Care Nursing Home Director Name Role Phone Bro Alicea MD Primary Care Provider [phone] Allergies No known active allergies Medications azelastine [...] 12/15/2022 Assessment & Plan (06/09/2023 9:34 AM COMPENSATION ASSOCIATE): Discussed lifestyle modifications, diet and exercise. Routine [...] 12/15/2022 Assessment & Plan (06/09/2023 9:34 AM COMPENSATION ASSOCIATE): Wt Readings from Last 3 Encounters: 06/09/23 [...] 12/15/2022 Assessment & Plan (06/09/2023 9:34 AM COMPENSATION ASSOCIATE): No results found for: CHOL, POCCHOL No [...] 03/01/2018 Assessment & Plan (06/09/2023 9:31 AM COMPENSATION ASSOCIATE): Not at goala t this time Having [...] on file Legal Sex Male 12:12 AM COMPENSATION ASSOCIATE Gender Identity Not on file Sexual Orientation Not on file Obstetrics History Last Filed Vital Signs Vital Sign Reading Time Taken Comments Blood Pressure 110/78 06/09/2023 9:10 AM COMPENSATION ASSOCIATE Pulse 91 06/09/2023 9:10 AM COMPENSATION ASSOCIATE Temperature - - Respiratory Rate 16 06/09/2023 9:10 AM COMPENSATION ASSOCIATE Oxygen Saturation 96% 06/09/2023 9:10 AM COMPENSATION ASSOCIATE Inhaled Oxygen Concentration - - Weight 107 kg (236 lb) 06/09/2023 9:10 AM COMPENSATION ASSOCIATE Height 174 cm (5' 8.5) 06/09/2023 9:10 AM COMPENSATION ASSOCIATE Body Mass Index 35.36 06/09/2023 9:10 AM COMPENSATION ASSOCIATE Plan of Treatment Health Maintenance Due Date Last Done Comments Hepatitis C Screening 1990 Varicella Vaccines (1 of 2 - 13+ 2-dose series) 09/25/2003 DTaP/Tdap/Td Vaccine (6 - Tdap) 12/08/2004 12/07/2004, 07/28/1995, 07/25/1995, Additional history exists Pneumococcal vaccine <65 (1 of 2 - PCV) 2009 Depression Screening 06/09/2024 06/09/2023, 12/16/19 Regular Well Visit/Exam 18-64 06/09/2024 06/09/2023 Influenza Vaccine (#1) 2025 Hepatitis B Screening Completed 08/04/2001 , 01/30/2001, 12/17/2000 HPV Vaccines Aged Out No longer eligi ble based on patient's age to complete this topic Insurance [employer] Care Teams Nursing Home Director Relationship Specialty Start Date End Date Bro Alicea MD [address] [place] [address] PCP - General Family Medicine 12/15/22
--- OUTSIDE RECORDS SUMMARY | 2024-11-08 11:55 | XMS_ITS | Clinical Summary ---
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 [...] 10:11 AM CDT Height 175.3 cm (5' 9) 10/29/2022 10:11 AM CDT Body Mass Index 33.82 10/29/2022 10:11 AM CDT Plan of Treatment Health Maintenance Due Date Last Done Comments Hepatitis C Virus (HCV) Screening 1990 DTaP/Tdap/Td Immunization (6 - Tdap) 12/08/2004 12/07/2004, 07/28/1995, 07/25/1995, Additional history exists Human Papillomavirus (HPV) Immunization (1 - Male 3-dose series) 2005 Pneumococcal Immunization Combined (1 of 2 - PCV) 2009 SARS-COV-2 Immunization (1 - ) 01/03/2024 Influenza Immunization (#1) 2025 Respiratory Syncytial Virus (RSV) Immunization (Adult) (1 - 1-dose 75+ series) 2065 Hepatitis B Immunization Completed 002, 01/30/2001, 12/17/2000 Meningococcal Immunization (ACWY) Aged Out No longer eligible based on patient's age to complete this topic Rotavirus Immunization Aged Out No lo nger eligible based on patient's age to complete this topic Insurance [facility] Care Teams Histotechnologist Relationship Specialty Start Date End Date Dioni Gibbs MD [address] [place] [address] PCP - General Internal Medicine 02/18/18
[2024-11-08 11:58] VITALS: BP 128/90; PULSE 96; RESP 20; TEMP 36.9; O2SAT 99
--- OUTSIDE RECORDS SUMMARY | 2024-11-08 11:58 | XMS_ITS | Continuity of Care Document ---
Author Organization [facility] Address [address] [place] [address] Phone Care Team Providers Care Lamps Tester And Inspector Name Role Phone Gopi Moya MD Unavailable Unavailable Procedures Procedure Date Eye Exam, New Patient Advance Directives Directive Yes / No Effective Date File Name No Information Encounters Encounter Description Practice Location Reason(s) For Visit Diagnoses Date Provider Providers Copied on Encounter [facility], [address], [place], [place], [id number], [place] tel:[phone] [address] [facility] No Information [address] [facility] [address] [place], [place], [id number], [place]. tel:[phone] Family History Family Member Type Diagnosis Age At Onset No Information Payers Payer name Insurance type Covered green party ID Authoraruna tiaimee(s) Medicaid [facility] [id number] Social History Type Description Quantity Date Captured [...]
--- NOTE | 2024-11-08 12:37 | ED_ITS ---
HPI - Skin/Abscess/Foreign Bdy General Chief complaint: Skin/Abscess/Foreign Body Stated complaint: left arm bit by something Time Seen by Provider: 11/08/24 12:00 Source: patient and RN notes reviewed Mode of arrival: ambulatory Limitations: no limitations History of Present Illness HPI narrative: 34-year-old male presents Express Care complaining of bug bite to left forearm. Patient states he believes symptom approximately 3 days ago, is unsure what bit him. Since then patient has increased redness and swelling to his right forearm that is extending in near his right elbow. Patient says the wound looks better but however still red. Patient reports there is some tenderness to the area. Patient any fevers, body aches, chills, nausea, vomiting, or any other symptoms. Patient denies any other significant past medical history other than asthma. Patient is also at requesting refill of his inhalers. Related Data Home Medications ?Medication ?Instructions ?Recorded ?Confirmed ?Last Taken ?Type albuterol sulfate 2.5 mg/3 mL mg 02/16/23 Unknown History (0.083 %) solution for nebulization albuterol sulfate 90 mcg/actuation inhalation 02/16/23 Unknown History aerosol inhaler budesonide-formoterol HFA 160 inhalation 11/08/24 Unknown History mcg-4.5 mcg/actuation aerosol inhaler Allergies Allergy/AdvReac Type Severity Reaction Status Date / Time No Known Allergies Allergy Verified 11/08/24 12:05 Review of Systems Review of Systems: CONSTITUTIONAL: Denies fever, body aches, chills, or sweats. EYES: Denies visual changes, redness, or discharge. ENT: Denies rhinorrhea, congestion, sore throat, or otalgia. CARDIOVASCULAR: Denies chest pain, palpitations, or edema. RESPIRATORY: Denies cough or dyspnea. GASTROINTESTINAL: Denies abdominal pain, nausea, vomiting, or diarrhea. GENITOURINARY: Denies dysuria or hematuria. SKIN: Denies rash or itching. Positive for wound. MUSCULOSKELETAL: Denies back pain, joint pain, or myalgia. NEUROLOGIC: Denies headache, numbness, or weakness. PSYCHIATRIC: Denies anxiety or depression. All other systems reviewed are negative, except as documented in HPI. [facility] Past Medical History Medical History Asthma Surgical History Surgical History No pertinent past surgical history Family History Family History Mother Family history non-contributory Social History Social History Smokeless tobacco user: chewing tobacco Alcohol intake: current Alcohol use details: social Substance use type: does not use Living arrangements: with family Gender identity (if verbalized by the patient): Male Sexual Orientation (if Verbalized by the Patient): Straight or Heterosexual Spiritual care concerns: No Comments At the time of my signature, I reviewed and agree with the nursing past medical, surgical, social, and family history. There is no relevant family history pertinent to the patient complaint. Exam Narrative: GENERAL: This is a well-nourished, well-developed adult, in no apparent distress. They are non ill-appearing, nontoxic appearing. HEAD: normocephalic, atraumatic. EYES: Sclera clear/white. Conjunctiva normal. Vision is grossly intact. Extraocular movements intact EARS: External ears normal, Hearing grossly intact. NOSE: External nose normal THROAT: Mucous membranes moist, NECK: Neck supple, non-tender without lymphadenopathy, masses or thyromegaly. CARDIOVASCULAR: Regular rate and rhythm RESPIRATORY: Respiratory rate normal, respiratory effort nonlabored, no respi ratory distress SKIN: Left arm: There is a single puncture wound to the mid lateral anterior forearm with surrounding erythema extending near the left elbow. Large area of diffuse erythema and swelling is measuring approximately 13 cm plate 7 cm along with extending mild erythema up into left elbow measuring an additional 9 cm x 2 cm. Skin is blanchable. No area of induration or area of fluctuance. Mild tenderness to palpation to the wound. Skin is warm to touch. No exudate. NEURO: awake, alert, and oriented to person, place and time. There were no obvious focal neurologic abnormalities. EXTREMITIES: No joint tenderness, effusion, or edema noted. Course Course Emergency Course: Portions of this record may have been created with voice recognition software Level of Care: Express Care Visit Vital Signs Vital signs: Vital Signs Temperature 98.4 F 11/08/24 11:58 Pulse Rate 96 11/08/24 11:58 Respiratory Rate 20 11/08/24 11:58 Blood Pressure 128/90 11/08/24 11:58 Pulse Oximetry 99 11/08/24 11:58 Oxygen Delivery Room Air 11/08/24 11:58 Temperature 98.4 F 11/08/24 11:58 Pulse Rate 96 11/08/24 11:58 Respiratory Rate 20 11/08/24 11:58 Blood Pressure 128/90 11/08/24 11:58 Pulse Oximetry 99 11/08/24 11:58 Oxygen Delivery Room Air 11/08/24 11:58 Reviewed MDM - Skin/Abscess/Foreign Bdy MDM Narrative Medical decision making narrative: Patient likely has cellulitis. Patient has no systemic symptoms of infection. Will treat with cephalexin. Strict ER precautions discussed with patient and he was advised to go to the ER immediately if symptoms worsen while on treatment. Border marked around the cellulitis. Discussed physical exam findings. Advised supportive measures and signs/symptoms to go to the ER. Pt is appropriate for outpt treatment and f/u. Differential Diagnosis Differential diagnosis: Likely cellulitis, insect bites and contact dermatitis Critical Care Time Critical Care Time Critical Care Time: No Discharge Plan Discharge Clinical Impression: Cellulitis Qualifiers: Site of cellulitis: extremity Site of cellulitis of extremity: upper extremity Laterality: left Qualified Code(s): L03.114 - Cellulitis of left upper limb Patient Disposition: Home Condition: Stable Instructions: Antibiotic Form, Cellulitis (ED) Additional Instructions: Clean with soap and water only; Avoid using alcohol and peroxide. Tylenol or ibuprofen as needed for pain or fevers Apply moist heat 3-4 times daily for 10-15 minutes. Take antibiotic until it's gone. Please schedule a follow up visit with your personal physician for further evaluation and treatment within 3-5days At the redness and swelling worsened, severe pain, or worsening streaking up the arm while on on treatment, or you developed fevers, body aches, chills, nausea, vomiting please go to the ER immediately. Your inhalers are refilled today. Use them as directed. Patient Language: Bengali Prescriptions: New cephalexin 500 mg capsule 500 mg PO Q6H 7 Days Qty: 28 0RF budesonide-formoterol 160-4.5 mcg/actuation HFA aerosol inhaler 2 puff inhalation Q12H Qty: 10.2 0RF albuterol sulfate [Ventolin HFA] 90 mcg/actuation HFA aerosol inhaler 2 puff inhalation QID PRN (Reason: shortness of breath or wheezing) Qty: 8.5 0RF No Action albuterol sulfate 90 mcg/actuation HFA aerosol inhaler 2 puff inhalation QID PRN (Reason: shortness of breath or wheezing) Qty: 8.5 0RF albuterol sulfate [Ventolin HFA] 90 mcg/actuation HFA aerosol inhaler 2 puff inhalation QID Qty: 8.5 0RF budesonide-formoterol 160-4.5 mcg/actuation HFA aerosol inhaler INHALATION albuterol sulfate 2.5 mg /3 mL (0.083 %) solution for nebulization albuterol sulfate 90 mcg/actuation HFA aerosol inhaler INHALATION Follow-up/Referrals: PHYSICIAN,RAW PRODUCTS DIRECTOR [Primary Care Provider] - Time of Disposition: 12:19
== END 2024-11-08 12:25 | disposition home or self-care (01) ==
DX: L03.114 Cellulitis of left upper limb (principal); F17.220 Nicotine dependence, chewing tobacco, uncomplicated; J45.909 Unspecified asthma, uncomplicated
CPT/HCPCS: 99213; G0463

== ENCOUNTER 2025-02-05 16:46 | Emergency (ER) | payer OTHER, SELFPAY ==
--- OUTSIDE RECORDS SUMMARY | 2008-01-27 04:15 | XMS_ITS | Continuity of Care Document ---
Author Organization [facility] Address [address] [place] [address] Phone Care Team Providers Care Manager Pharmacy Name Role Phone Gopi Moya MD Unavailable Unavailable Procedures Procedure Date Eye Exam, New Patient Advance Directives Directive Yes / No Effective Date File Name No Information Encounters Encounter Description Practice Location Reason(s) For Visit Diagnoses Date Provider Providers Copied on Encounter [facility], [address], [place], [place], [id number], [place] tel:[phone] [address] [place] Professional No Information [address] [facility] [address] [place], [place], [id number], [place]. tel:[phone] Family History Family Member Type Diagnosis Age At Onset No Information Payers Payer name Insurance type Covered libertarian ID Authoraruna tiaimee(s) Medicaid [facility] [id number] Social History Type Description Quantity Date Captured Comments Sex Male Smoking Status No Information Chief Complaint And Reason For Visit No Information Reason For Referral Reason For Referral No Information History Of Present Illness Encounter Date Complaint History Of Prese nt Illness No Information Functional Status Date Functional Assessmen t No Information Instructions Date Instruction Additional Infor mation No Information Assessments Type Assessment Date No Information Patient Care Teams Name Effective Dates (start - stop) Status Members No Information
--- OUTSIDE RECORDS SUMMARY | 2008-01-27 04:15 | XMS_ITS | Continuity of Care Document ---
Author Organization [facility] Address [address] [place] [address] Phone Care Team Providers Care Control Director Name Role Phone Gopi Moya MD Unavailable Unavailable Procedures Procedure Date Eye Exam, New Patient Advance Directives Directive Yes / No Effective Date File Name No Information Encounters Encounter Description Practice Location Reason(s) For Visit Diagnoses Date Provider Providers Copied on Encounter [facility], [address], [place], [place], [id number], [place] tel:[phone] [address] [place] Professional No Information [address] [address] [place], [place], [id number], [place]. tel:[phone] Family History Family Member Type Diagnosis Age At Onset No Information Payers Payer name Insurance type Covered constitution party ID Authoraruna tiaimee(s) Medicaid [facility] [id number] Social History Type Description Quantity Date Captured [...]
--- OUTSIDE RECORDS SUMMARY | 2025-02-05 16:48 | XMS_ITS | Clinical Summary ---
Author Organization [facility] Building A Address [address] [place] [address] Care Team Providers Care Single Pass Soil Stabilizer Operator Name Role Phone Bro Alicea MD Primary Care Provider [phone] Allergies No known active allergies Medications azelastine [...] 12/15/2022 Assessment & Plan (06/09/2023 9:34 AM LANDSCAPE ARCHITECTURE TEACHER): Discussed lifestyle modifications, diet and exercise. Routine [...] 12/15/2022 Assessment & Plan (06/09/2023 9:34 AM LANDSCAPE ARCHITECTURE TEACHER): Wt Readings from Last 3 Encounters: 06/09/23 [...] 12/15/2022 Assessment & Plan (06/09/2023 9:34 AM LANDSCAPE ARCHITECTURE TEACHER): No results found for: CHOL, POCCHOL No [...] 03/01/2018 Assessment & Plan (06/09/2023 9:31 AM LANDSCAPE ARCHITECTURE TEACHER): Not at goala t this time Having [...] on file Legal Sex Male 12:12 AM LANDSCAPE ARCHITECTURE TEACHER Gender Identity Not on file Sexual Orientation Not on file Obstetrics History Last Filed Vital Signs Vital Sign Reading Time Taken Comments Blood Pressure 110/78 06/09/2023 9:10 AM LANDSCAPE ARCHITECTURE TEACHER Pulse 91 06/09/2023 9:10 AM LANDSCAPE ARCHITECTURE TEACHER Temperature - - Respiratory Rate 16 06/09/2023 9:10 AM LANDSCAPE ARCHITECTURE TEACHER Oxygen Saturation 96% 06/09/2023 9:10 AM LANDSCAPE ARCHITECTURE TEACHER Inhaled Oxygen Concentration - - Weight 107 kg (236 lb) 06/09/2023 9:10 AM LANDSCAPE ARCHITECTURE TEACHER Height 174 cm (5' 8.5) 06/09/2023 9:10 AM LANDSCAPE ARCHITECTURE TEACHER Body Mass Index 35.36 06/09/2023 9:10 AM LANDSCAPE ARCHITECTURE TEACHER Plan of Treatment Health Maintenance Due Date Last Done Comments Hepatitis C Screening 1990 Varicella Vaccines (1 of 2 - 13+ 2-dose series) 09/25/2003 DTaP/Tdap/Td Vaccine (6 - Tdap) 12/08/2004 12/07/2004, 07/28/1995, 07/25/1995, Additional history exists Pneumococcal vaccine <65 (1 of 2 - PCV) 2009 HPV Vaccines (1 - 3-dose SCD M series) 2017 Depression Screening 06/09/2024 06/09/2023, 12/16/19 Regular Well Visit/Exam 18-64 06/09/2024 06/09/2023 Influenza Vaccine (#1) 2025 Hepatitis B Screening Completed 08/04/2001 , 01/30/2001, 12/17/2000 Insurance [employer] Care Teams Single Pass Soil Stabilizer Operator Relationship Specialty Start Date End Date Bro Alicea MD [address] [place] [address] PCP - General Family Medicine 12/15/22
--- OUTSIDE RECORDS SUMMARY | 2025-02-05 16:48 | XMS_ITS | Encounter Summary ---
Author Organization [facility] Address [address] 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
[2025-02-05 16:50] VITALS: BP 114/76; PULSE 84; RESP 20; TEMP 36.9; O2SAT 100
--- OUTSIDE RECORDS SUMMARY | 2025-02-05 16:50 | XMS_ITS | Clinical Summary ---
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 Not on file [...] Combined (1 of 2 - PCV) 2009 Human Papillomavirus (HPV) Immunization (1 - 3-dose SCDM series) 2017 Influenza Immunization (#1) 2025 SARS-COV-2 Immunization ( - 2024-25 season) 2025 Respiratory Syncytial Virus (RSV) Immunization (Adult) (1 - 1-dose 75+ series) 2065 Hepatitis B Immunization Completed 002, 01/30/2001, 12/17/2000 Meningococcal Immunization (ACWY) Aged Out No longer eligible based on patient's age to complete this topic Rotavirus Immunization Aged Out No lo nger eligible based on patient's age to complete this topic Insurance [facility] Care Teams Medical Sales Associate Relationship Specialty Start Date End Date Dioni Gibbs MD [address] [place] [address] PCP - General Internal Medicine 02/18/18
[2025-02-05 17:23] LABS: EDCOVIDSCREEN Negative (Negative); EDINFLUASCREEN Negative (Negative); EDINFLUBSCREEN Negative (Negative)
--- NOTE | 2025-02-05 17:25 | ED_ITS ---
HPI - URI/Sore Throat General Chief Complaint: Upper Respiratory Infection Stated Complaint: Nasal Congestion/Eye Problem Time Seen by Provider: 02/05/25 17:00 Source: patient and RN notes reviewed Mode of arrival: ambulatory Limitations: no limitations History of Present Illness HPI Narrative: 34-year-old male presents Express Care complaining of upper respiratory symptoms for 2 days. Patient reports cough, congestion, chest congestion, runny nose, body aches. Patient denies any chest pain, difficulty breathing, nausea, vomiting, diarrhea, earache, sore throat, or any other symptoms. Patient has been taking [id number] cold and flu medication with some relief. Patient denies any significant past medical history. Related Data Home Medications ?Medication ?Instructions ?Recorded ?Confirmed ?Last Taken ?Type albuterol sulfate 2.5 mg/3 mL mg 02/16/23 Unknown His tory (0.083 %) solution for nebulization albuterol sulfate 90 mcg/actuation inhalation 02/16/23 Unknown History aerosol inhaler budesonide-formoterol HFA 160 inhalation 11/08/24 Unk nown History mcg-4.5 mcg/actuation aerosol inhaler Allergies Allergy/AdvReac Type Severity Reaction Status Date / Time No Known Allergies Allergy Verified 11/08/24 12:05 Review of Systems Review of Systems: CONSTITUTIONAL: Positive for body aches. Denies fever, chills, or sweats. EYES: Denies visual changes, redness, or discharge. ENT: Positive for rhinorrhea, congestion. Negative for sore throat, or otalgia. CARDIOVASCULAR: Denies chest pain, palpitations, or edema. RESPIRATORY: Positive for cough. Negative for wheezing or dyspnea. GASTROINTESTINAL: Denies abdominal pain, nausea, vomiting, or diarrhea. GENITOURINARY: Denies dysuria or hematuria. SKIN: Denies rash or itching. MUSCULOSKELETAL: Denies back pain, joint pain, or myalgia. NEUROLOGIC: Denies headache, numbness, or weakness. PSYCHIATRIC: Denies anxiety or depression. All other systems reviewed are negative, except as documented in HPI. [facility] Past Medical History Medical History Asthma Surgical History Surgical History No pertinent past surgical history Family History Family History Mother Family history non-contributory Social History Social History Smokeless tobacco user: chewing tobacco Alcohol intake: current Alcohol use details: social Substance use type: does not use Living arrangements: with family Gender identity (if verbalized by the patient): Male Sexual Orientation (if Verbalized by the Patient): Straight or Heterosexual Spiritual care concerns: No Comments At the time of my signature, I reviewed and agree with the nursing past medical, surgical, social, and family history. There is no relevant family history pertinent to the patient complaint. Exam Narrative: GENERAL: This is a well-nourished, well-developed adult, in no apparent distress. They are non ill-appearing, nontoxic appearing. HEAD: normocephalic, atraumatic. EYES: Sclera clear/white. Conjunctiva normal. Vision is grossly intact. Extraocular movements intact EARS: External ears normal, auditory canals clear and without drainage, TMs normal without perforation. Hearing grossly intact. NOSE: External nose normal with no obvious nasal discharge, nasal turbinates erythematous, there is rhinorrhea. THROAT: Mucous membranes moist, posterior pharynx erythematous. Postnasal drip present. Uvula midline. NECK: Neck supple, non-tender without lymphadenopathy, masses or thyromegaly. CARDIOVASCULAR: Regular rate and rhythm without murmurs, gallops, or rubs. RESPIRATORY: Clear to auscultation. Breath sounds equal bilaterally. No wheezes, rales, or rhonchi. SKIN: warm, Dry, intact with no suspicious lesions or rash, good texture and turgor. NEURO: awake, alert, and oriented to person, place and time. There were no obvious focal neurologic abnormalities. EXTREMITIES: No joint tenderness, effusion, or edema noted. Course Course Emergency Course: Portions of this record may have been created with voice recognition software Level of Care: Express Care Visit Vital Signs Vital signs: Vital Signs Temperature 98.5 F 02/05/25 16:50 Pulse Rate 84 02/05/25 16:50 Respiratory Rate 20 02/05/25 16:50 Blood Pressure 114/76 02/05/25 16:50 Pulse Oximetry 100 02/05/25 16:50 Oxygen Delivery Room Air 02/05/25 16:50 Temperature 98.5 F 02/05/25 16:50 Pulse Rate 84 02/05/25 16:50 Respiratory Rate 20 02/05/25 16:50 Blood Pressure 114/76 02/05/25 16:50 Pulse Oximetry 100 02/05/25 16:50 Oxygen Delivery Room Air 02/05/25 16:50 Reviewed MDM - URI/Sore Throat MDM Narrative Medical decision making narrative: Rapid COVID in flu negative. Symptoms likely viral in etiology. Will Prescribe patient dose of Medrol Dosepak. Discussed physical exam findings. Advised supportive measures and signs/symptoms to go to the ER. Pt is appropriate for outpt treatment and f/u. Differential Diagnosis Differential diagnosis: Likely upper respiratory infection, otitis media, viral infection, bronchitis and pharyngitis Lab Data Attestation: I reviewed the patient's lab results. Labs: Lab Results 02/05/25 Range/Units 16:57 POC Influenza A Ag Negative (Negative) POC Influenza B Ag Negative (Negative) POC SARS CoV-2 Ag Negative (Negative) Critical Care Time Critical Care Time Critical Care Time: No Discharge Plan Discharge Clinical Impression: Upper respiratory infection Qualifiers: URI type: unspecified viral URI Qualified Code(s): J06.9 - Acute upper resp iratory infection, unspecified Patient Disposition: Home Condition: Stable Instructions: Upper Respiratory Infection (ED) Additional Instructions: Viral illness may last between 7-10 days; antibiotics do not cure viral illness and are NOT recommended at this time. Recommend antihistamine such as Benadryl at night time and Zyrtec or Ani during the day, follow instructions on the bottle, Benadryl may make you drowsy sedated drive or operate machinery while taking Benadryl. Take Medrol Dosepak as directed. Also, recommend symptomatic treatment includes: rest, fluids, and increase humidity of the air at home. Tylenol ibuprofen as needed for pain or fevers helpful instruction on the bottle. Please schedule a follow-up visit with your personal physician for further evaluation and treatment within 3-5days. He developed worsening symptoms, chest pain, difficulty breathing, nausea vomiting, or any serious concerns please go to the ER immediately. Patient Language: Citizen Of [place] Prescriptions: New methylprednisolone 4 mg tablets,dose pack See Rx Instructions .ROUTE .COMPLEX Qty: 21 0RF Rx Instructions: for 6 days No Action albuterol sulfate 90 mcg/actuation HFA aerosol inhaler 2 puff inhalation QID PRN (Reason: shortness of breath or wheezing) Qty: 8.5 0RF albuterol sulfate [Ventolin HFA] 90 mcg/actuation HFA aerosol inhaler 2 puff inhalation QID Qty: 8.5 0RF budesonide-formoterol 160-4.5 mcg/actuation HFA aerosol inhaler INHALATION cephalexin 500 mg capsule 500 mg PO Q6H 7 Days Qty: 28 0RF budesonide-formoterol 160-4.5 mcg/actuation HFA aerosol inhaler 2 puff inhalation Q12H Qty: 10.2 0RF albuterol sulfate [Ventolin HFA] 90 mcg/actuation HFA aerosol inhaler 2 puff inhalation QID PRN (Reason: shortness of breath or wheezing) Qty: 8.5 0RF albuterol sulfate 2.5 mg /3 mL (0.083 %) solution for nebulization albuterol sulfate 90 mcg/actuation HFA aerosol inhaler INHALATION Follow-up/Referrals: PHYSICIAN,SUPERVISOR TOY ASSEMBLY [Primary Care Provider, Internal Medicine] Time of Disposition: 17:24
== END 2025-02-05 17:43 | disposition home or self-care (01) ==
DX: J06.9 Acute upper respiratory infection, unspecified (principal); Z20.822 Contact with and (suspected) exposure to COVID-19; F17.220 Nicotine dependence, chewing tobacco, uncomplicated; J45.909 Unspecified asthma, uncomplicated
CPT/HCPCS: 87426; 87804; 99213; G0463